=== PATIENT | female | born 1975 | race Caucasian/White ===

== ENCOUNTER 2017-04-27 10:24 | Day surgery (SDC) | payer OTHER ==
[~2017-04-27] VITALS: Ht 154.9 cm; Wt 66.7 kg
[2017-04-27 11:08] VITALS: BP 127/85
[2017-04-27 11:08] LABS: HCG UR SG 1.027 (1.003-1.030)
[2017-04-27] MEDS ORDERED: LIDOCAINE 1%, 50ML ONE (11:08)
[2017-04-27] MEDS ORDERED: EPINEPHRINE TOPICAL SOLN 1 MG/ML, 30ML ONE (11:08)
[2017-04-27] MEDS ORDERED: BUPIVACAINE/PF 0.5% ONE (11:08)
[2017-04-27] MEDS ORDERED: NEOSPORIN OINT, 15GM ONE (11:08)
[2017-04-27] MEDS ORDERED: EPINEPHRINE 1 MG/ML, 1ML ONE (11:09)
[2017-04-27] MEDS ORDERED: no home meds (11:19)
[2017-04-27] MEDS ORDERED: LIDOCAINE 1%, 2ML ONE (11:24)
[2017-04-27] MEDS ORDERED: LIDOCAINE-MPF 2% ,5ML ONE (12:03)
[2017-04-27] MEDS ORDERED: PROPOFOL 10 MG/ML, 20ML ONE (12:03)
[2017-04-27] MEDS ORDERED: ROCURONIUM 10 MG/ML,10ML ONE (12:05)
[2017-04-27] MEDS ORDERED: NEOSTIGMINE 1 MG/ML, 10ML ONE (12:51)
[2017-04-27] MEDS ORDERED: GLYCOPYRROLATE 0.2MG/1ML, 5ML ONE (12:51)
[2017-04-27] MEDS ORDERED: GELFILM OPHTHALMIC DRESSING ONE ×2 (13:28→13:29)
[2017-04-27] MEDS ORDERED: OFLOXACIN OPHTH 0.3%, 5ML OP ONE (13:38)
[2017-04-27] MEDS ORDERED: ONDANSETRON 2MG/ML, 2ML ONE (13:46)
[2017-04-27] MEDS ORDERED: DEXAMETHASONE 4 MG/ML, 1ML ONE ×2 (13:46)
[2017-04-27] MEDS ORDERED: FENTANYL PF 100 MCG/2ML ONE (13:47)
[2017-04-27] MEDS ORDERED: morphine SULFATE 10 MG/ML, 1ML IV PRN (14:30)
[2017-04-27] MEDS ORDERED: FENTANYL PF 100 MCG/2ML IV PRN (14:30)
[2017-04-27] MEDS ORDERED: ONDANSETRON 2MG/ML, 2ML IVPush PRN (14:30)
[2017-04-27] MEDS ORDERED: MEPERIDINE/PF 25MG/0.5ML IVPush PRN (14:30)
[2017-04-27] MEDS ORDERED: OXYcodone 5 MG/5 ML ORAL.SOL UDC PO PRN (14:30)
[2017-04-27] MEDS ORDERED: HYDROcodone/APAP 7.5-325MG/15ML UDC PO PRN (14:30)
== END 2017-04-27 17:20 | disposition home or self-care (01) ==
LOC: OUT 10:24
PROVIDERS: ATTEND Specialist
DX: S09.22XA Traumatic rupture of left ear drum, initial encounter (principal); W23.0XXA Caught, crushed, jammed, or pinched between moving objects, initial encounter; Y93.89 Activity, other specified; Y92.89 Other specified places as the place of occurrence of the external cause; Y99.8 Other external cause status
CPT/HCPCS: 69620; 81025; J0171; J1100; J2405; J2704; J2710; J3010; J3490